=== PATIENT | female | born 1990 | race African-American/Black ===

== ENCOUNTER 2019-04-22 14:14 | Inpatient (IN) | payer OTHER ==
--- NOTE | 2019-04-22 14:16 | PDOC ---
History of Present Illness - General Chief Complaint: Pain Stated Complaint: ABDOMINAL PAIN LOOSE STOOL Time Seen by Provider: 04/22/19 14:16 Past History - Past Medical History Allergies/Adverse Reactions: Allergies Allergy/AdvReac Type Severity Reaction Status Date / Time No Known Allergies Allergy Unverified 04/22/19 14:15 Home Medications: Ambulatory Orders NK [No Known Home Medication] 04/22/19 *DC/Admit/Observation/Transfer - Discharge Dispostion Condition at time of disposition: Stable - Referrals - Patient Instructions - Post Discharge Activity
[2019-04-22] MEDS ORDERED: KETOROLAC TROMETHAMINE 30 MG/1 ML VIAL IVPUSH ONE (14:53)
[2019-04-22] MEDS ORDERED: KETOROLAC TROMETHAMINE 30 MG/1 ML VIAL ONE (15:00)
[2019-04-22 15:25] LABS: HEMOGLOBIN 11.9 GM/dl (10.7-15.3); MCH 30.8 pg (25.7-33.7); MEAN CELL VOLUME 93.1 fl (80-96); MEAN PLT VOLUME 8.5 fl (7.5-11.1); PLATELET COUNT 258 K/MM3 (134-434); RBC 3.86 M/mm3 (3.60-5.2); RDW 11.6 % (11.6-15.6); WHITE BLOOD COUNT 16.3 K/mm3 (4.0-10.8)
[2019-04-22 15:26] LABS: EPITHELIAL CELLS 1+ /hpf; URINE MUCUS 2+
[2019-04-22] MEDS ORDERED: SODIUM CHLORIDE 1,000 ML IV STA (15:29)
[2019-04-22 15:42] LABS: BILIRUBIN,TOTAL 1.6 mg/dl (0.2-1); CALCIUM 8.5 mg/dl (8.5-10); CREATININE 0.5 mg/dl (0.55-1.3); POTASSIUM 3.4 mmol/L (3.5-5.1); TOT PROT 7.3 g/dl (6.4-8.2)
[2019-04-22 16:00] LABS: PLATELET ESTIMATE ADEQUATE
--- NOTE | 2019-04-22 16:37 | PDOC ---
Documentation entered by Lidia Zamora SCRIBE, acting as scribe for Saroj Garcia MD. Saroj Garcia MD: This documentation has been prepared by the tenibNoah thao Natalie, SCRIBE, under my direction and personally reviewed by me in its entirety. I confirm that the documentation accurately reflects all work, treatment, procedures, and medical decision making performed by me. History of Present Illness - General Chief Complaint: Pain Stated Complaint: ABDOMINAL PAIN LOOSE STOOL Time Seen by Provider: 04/22/19 14:16 History Source: Patient Exam Limitations: No Limitations - History of Present Illness Initial Comments: 04/22/19 14:51 The patient is a 28-year-old female, with no past medical history, who presents to the ED diarrhea and abdominal pain that began yesterday. The pain is primarily in the RUQ and she describes it as intermittent, 8/10 in severity, with radiation to her RT lower back and RT shoulder, exacerbated with movement, and accompanied by lightheadedness and nausea, but no vomiting. The patient reports having numerous episodes of nonbloody diarrhea. She denies any recent changes in her diet or recent travel. LMP was 1 week ago and was normal. Patient has a Mirena IUD. The patient denies any fever, chills, vomiting, or constipation. Denies any chest pain or shortness of breath. Denies any weakness, dizziness, or changes in sensation. Denies any vaginal discharge or vaginal bleeding. Allergies: NKA Past History - Past Medical History Allergies/Adverse Reactions: Allergies Allergy/AdvReac Type Severity Reaction Status Date / Time No Known Allergies Allergy Unverified 04/22/19 14:15 Home Medications: Ambulatory Orders NK [No Known Home Medication] 04/22/19 COPD: No Other medical history: DENIES - Suicide/Smoking/Psychosocial Hx Smoking History: Never smoked Information on smoking cessation initiated: No Hx Alcohol Use: Yes (SOCIAL) Drug/Substance Use Hx: No Review of Systems - Review of Systems Able to Perform ROS?: Yes Comments:: 04/22/19 14:52 CONSTITUTIONAL: Absent: fever, chills, diaphoresis, generalized weakness, malaise, loss of appetite HEENT: Absent: rhinorrhea, nasal congestion, throat pain, throat swelling, difficulty swallowing, mouth swelling, ear pain, eye pain, visual Changes CARDIOVASCULAR: (+)Lightheadedness. Absent: chest pain, syncope, palpitations, irregular heart rate, peripheral edema RESPIRATORY: Absent: cough, shortness of breath, dyspnea with exertion, orthopnea, wheezing, stridor, hemoptysis GASTROINTESTINAL: (+)RT-sided abdominal pain, abdominal distension, diarrhea, nausea. Absent: vomiting, constipation, melena, hematochezia GENITOURINARY: Absent: dysuria, frequency, urgency, hesitancy, hematuria, flank pain, genital pain MUSCULOSKELETAL: Absent: myalgia, arthralgia, joint swelling SKIN: Absent: rash, itching, pallor HEMATOLOGIC/IMMUNOLOGIC: Absent: easy bleeding, easy bruising, lymphadenopathy, frequent infections ENDOCRINE: Absent: unexplained weight gain, unexplained weight loss, heat intolerance, cold intolerance NEUROLOGIC: Absent: headache, focal weakness or paresthesias, dizziness, unsteady gait, seizure, mental status changes, bladder or bowel incontinence PSYCHIATRIC: Absent: anxiety, depression, suicidal or homicidal ideation, hallucinations. *Physical Exam - Vital Signs Last Vital Signs Temp Pulse Resp BP Pulse Ox 100.4 F H 112 H 16 122/76 100 04/22/19 14:15 04/22/19 14:15 04/22/19 14:15 04/22/19 14:15 04/22/19 14:15 - Physical Exam Comments: 04/22/19 14:53 GENERAL: Well developed, well nourished. Awake and alert. No acute distress. HEENT: Normocephalic, atraumatic. PERRLA, EOMI. No conjunctival pallor. Sclera are non- icteric. Moist mucous membranes. Oropharynx is clear. NECK: Supple. Full ROM. No JVD. Carotid pulses 2+ and symmetric, without bruits. No thyromegaly. No lymphadenopathy. CARDIOVASCULAR: Regular rate and rhythm. No murmurs, rubs, or gallops. Distal pulses are 2+ and symmetric. PULMONARY: No evidence of respiratory distress. Lungs clear to auscultation bilaterally. No wheezing, rales or rhonchi. ABDOMINAL: (+)There was no pallor or icterus present. Abdomen was mildly distended. Bowel sounds present and normal in character. There was considerable tenderness to palpation to RT mid abdomen and RUQ with guarding and the suggestion of rebound. MUSCULOSKELETAL Normal range of motion at all joints. No bony deformities or tenderness. No CVA tenderness. EXTREMITIES: No cyanosis. No clubbing. No edema. No calf tenderness. SKIN: Warm and dry. Normal capillary refill. No rashes. No jaundice. NEUROLOGICAL: Alert, awake, appropriate. Cranial nerves 2-12 intact. PSYCHIATRIC: Cooperative. Good eye contact. Appropriate mood and affect. ED Treatment Course - LABORATORY CBC & Chemistry Diagram: 04/22/19 14:55 04/22/19 14:55 - ADDITIONAL ORDERS Additional order review: Laboratory Results 04/22/19 14:12 Urine HCG, Qual Negative - RADIOLOGY Radiology Studies Ordered: Category Date Time Status GALLBLADDER US [US] Stat Ultrasound 04/22/19 14:51 Ordered - Medications Given in the ED: ED Medications Discontinued Medications Generic Name Dose Route Start Last Admin Trade Name Freq PRN Reason Stop Dose Admin Ketorolac Tromethamine 30 mg 04/22/19 14:53 04/22/19 15:03 Toradol Injection - IVPUSH 04/22/19 14:54 30 mg ONCE ONE Administration Medical Decision Making - Medical Decision Making 04/22/19 16:33 White blood count 16,000+ with a left shift. LFTs normal. Ultrasound shows normal gallbladder and liver, no free fluid, but appendix was not visualized CT machine Chio undergoing repair and nonfunctional Hospitalist Dr. Moyer contacted by phone. Surgeon Dr. Renee contacted by phone for consultation. Accepted for admission, and [facility], with CAT scan to be performed there , and further evaluation by hospitalist and surgeon. Patient's pain is adequately controlled and she is clinically and hemodynamically stable, although pain is still present. *DC/Admit/Observation/Transfer Diagnosis at time of Disposition: Appendicitis Qualifiers: Appendicitis type: acute appendicitis Acute appendicitis type: with localized peritonitis Appendicitis gangrene presence: unspecified whether gangrene present Appendicitis perforation presence: unspecified whether perforation present Appendicitis abscess presence: unspecified whether abscess present Qualified Code(s): K35.30 - Acute appendicitis with localized peritonitis, without perforation or gangrene - Discharge Dispostion Decision to Admit order: Yes - Referrals - Patient Instructions - Post Discharge Activity
[2019-04-22] MEDS ORDERED: morphine SULFATE 4 MG/ML VIAL IVPUSH PRN ×2 (19:35→22:21)
[2019-04-22] MEDS ORDERED: PIPERACILLIN/TAZOB 4.5 GM 4.5 GM in DEXTROSE 5%-WATER 100 ML IVPB ONE ×2 (19:36→22:21)
[2019-04-22] MEDS ORDERED: ONDANSETRON 4 MG/2 ML VIAL IVPB ONE ×2 (19:37→22:21)
[2019-04-22 19:50] VITALS: BMI 27.6
--- NOTE | 2019-04-22 19:52 | CONSULT ---
Consult Consult Specialty:: General Surgery Reason for Consultation:: presumed appendicitis - History of Present Illness Chief Complaint: RLQ abdominal pain History of Present Illness: 28 yo female no significant PMH, presented to the ED diarrhea and abdominal pain that began yesterday. The pain is primarily in the RUQ and she describes it as intermittent, 8/10 in severity, with radiation to her RT lower back and RT shoulder, exacerbated with movement, and accompanied by lightheadedness and nausea, but no vomiting. The patient reports having numerous episodes of nonbloody diarrhea. She denies any recent changes in her diet or recent travel. LMP was 1 week ago and was normal. Patient has a Mirena IUD. The patient denies any fever, chills, vomiting, or constipation. Denies any chest pain or shortness of breath. Denies any weakness, dizziness, or changes in sensation. Denies any vaginal discharge or vaginal bleeding. We were called when the appendix could not be visualized on Abd US and CT scan was not available at [facility]. - History Source History Provided By: Patient, Medical Record Limitations to Obtaining History: No Limitations - Past Medical History Reproductive: Yes: Other (IUD) - Alcohol/Substance Use Hx Alcohol Use: Yes (SOCIAL) - Smoking History Smoking history: Never smoked - Social History Place of : [facility] Home Medications - Allergies Allergies/Adverse Reactions: Allergies Allergy/AdvReac Type Severity Reaction Status Date / Time No Known Allergies Allergy Unverified 04/22/19 14:15 - Home Medications Home Medications: Ambulatory Orders NK [No Known Home Medication] 04/22/19 Review of Systems - Review of Systems Constitutional: denies: Chills, Fever Eyes: denies: Blind Spots, Recent Change in Vision HENT: denies: Difficult Swallowing, Throat Pain Neck: denies: Decreased ROM, Pain on Movement Cardiovascular: denies: Chest Pain, Palpitations Respiratory: denies: Cough, SOB Gastrointestinal: reports: Abdominal Pain. denies: Bloating, Constipation Genitourinary: denies: Discharge, Dysuria Breasts: reports: No Symptoms Reported. denies: Pain Musculoskeletal: denies: Back Pain, Muscle Pain, Muscle Cramps Integumentary: denies: Bruising, Lesions, Lump Neurological: denies: Syncope, Tremors Endocrine: denies: Unexplained Weight Gain, Unexplained Weight Loss Hematology/Lymphatic: denies: Easily Bruised, Excessive Bleeding Psychiatric: denies: Anxiety, Depression Physical Exam Vital Signs: Vital Signs Temperature 99.7 F H 04/22/19 18:25 Pulse Rate 102 H 04/22/19 18:25 Respiratory Rate 16 04/22/19 18:25 Blood Pressure 119/75 04/22/19 18:25 O2 Sat by Pulse Oximetry (%) 99 04/22/19 18:25 Vital Signs Period Temp Pulse Resp BP Sys/Troy Pulse Ox Last 24 Hr 99.2 F-100.4 F 91-112 16-20 101-123/59-76 99-100 Constitutional: Yes: Well Nourished, No Distress, Calm Eyes: Yes: Conjunctiva Clear, EOM Intact HENT: Yes: Atraumatic, Normocephalic Neck: Yes: Supple, Trachea Midline Cardiovascular: Yes: Regular Rate and Rhythm, S1, S2 Respiratory: Yes: Regular, CTA Bilaterally Gastrointestinal: Yes: Normal Bowel Sounds, Soft, Distention, Tenderness, Tenderness, Rebound, Other (negative psoas sign). No: Abdomen, Obese ...Rectal Exam: Yes: Deferred Renal/: No: CVA Tenderness - Left, CVA Tenderness - Right Musculoskeletal: No: Muscle Pain, Muscle Weakness Extremities: No: Cool, Cyanosis Edema: No Peripheral Pulses WNL: Yes Integumentary: No: Jaundice, Rash, Skin Tear Neurological: Yes: Alert, Oriented Psychiatric: Yes: Alert, Oriented Labs: CBC, BMP 04/22/19 14:55 04/22/19 14:55 Imaging - Results Cat Scan: Pending Problem List - Problems (1) Appendicitis Assessment/Plan: 28yo female a presumed diagnosis of acute appendicitis? Appendix not visualized on Abd US in ED, CT scan not available at [facility] thus she was transferred in order to exclude other female pathology. She does have loaclized peritonitis in the RLQ, with rebound and guarding. Medical admission and complete diagnostic work up NPO and IVF hydration IV antibiotics Adequate analgesia CT scan AP without Discussed with patient risks, benefits and alternatives of laparoscopic possible open appendectomy, including but not limited to bleeding, infection, injury to adjacent structures, leak or injury, intraabdominal abscess, incisional hernia, need for further procedures, ; alternatives include antibiotics, delayed or no surgery - risks of this include failure of nonoperative therapy, perforation, sepsis, recurrence, . Patient desires to proceed with operation - will take to OR for above. Informed consent signed for same. Thank you for the opportunity to participate in the care of this patient. Code(s): K37 - UNSPECIFIED APPENDICITIS Qualifiers: Appendicitis type: acute appendicitis Acute appendicitis type: with localized peritonitis Appendicitis gangrene presence: unspecified whether gangrene present Appendicitis perforation presence: unspecified whether perforation present Appendicitis abscess presence: unspecified whether abscess present Qualified Code(s): K35.30 - Acute appendicitis with localized peritonitis, without perforation or gangrene (2) Abdominal pain in female patient Code(s): R10.9 - UNSPECIFIED ABDOMINAL PAIN (3) RLQ abdominal pain Code(s): R10.31 - RIGHT LOWER QUADRANT PAIN (4) Leukocytosis (leucocytosis) Code(s): D72.829 - ELEVATED WHITE BLOOD CELL COUNT, UNSPECIFIED Qualifiers: Leukocytosis type: bandemia Qualified Code(s): D72.825 - Bandemia (5) Fever Code(s): R50.9 - FEVER, UNSPECIFIED Qualifiers: Fever type: due to other condition Qualified Code(s): R50.81 - Fever presenting with conditions classified elsewhere
--- NOTE | 2019-04-22 20:02 | PN ---
Teaching Attending Note Name of Resident: Domingo Yost ATTENDING PHYSICIAN STATEMENT I saw and evaluated the patient. I reviewed the resident's note and discussed the case with the resident. I agree with the resident's findings and plan as documented. SUBJECTIVE: Patient is a 28 year old woman with no significant PMH who presented to [place] [facility] with diarrhea and abdominal pain that began yesterday. The pain is primarily in the RUQ and she describes it as intermittent, 8/10 in severity, with radiation to her right lower back and right shoulder. Pain is exacerbated with movement, and accompanied by lightheadedness and nausea, but no vomiting. The patient reports having 3 to 4 episodes of nonbloody watery stool. She denies any recent changes in her diet, eating street/unusual food, sick contacts or recent travel. Her LMP was 1 week ago and was normal. Patient has a Mirena IUD. She does not smoke cigarettes, smokes marijuana occasionally, but denies any illicit drug use. 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 She denies any fever, chills, vomiting, constipation, chest pain, shortness of breath, weakness, dizziness, or changes in sensation. Denies any abnormal vaginal discharge or vaginal bleeding. OBJECTIVE: Alert Vital Signs Period Temp Pulse Resp BP Sys/Troy Pulse Ox Last 24 Hr 99.2 F-100.4 F 91-112 16-20 101-123/59-76 99-100 HEENT: No Jaundice, eye redness or discharge, PERRLA, EOMI. Normocephalic, atraumatic. External ears are normal and hearing is grossly intact. No nasal discharge. Neck: Supple, nontender. No palpable adenopathy or thyromegaly. No JVD Chest: Good effort. Clear to auscultation and percussion. Heart: Regular. No S3, rub or murmur Abdomen: Not distended, soft, nontender and no HSM. No rebound or guarding. Normal bowel sounds. Ext: Peripheral pulses intact. No leg edema. Skin: Warm and dry. No petechiae, rash or ecchymosis. Neuro: Alert. Oriented x3. CN 2-12 grossly intact. Sensation grossly intact in all four extremities and DTR are symmetric. Psych: Appropriate mood and affect. Good insight. Current Medications Generic Name Dose Route Start Last Admin Trade Name Freq PRN Reason Stop Dose Admin Morphine Sulfate 4 mg 04/22/19 19:35 04/22/19 19:51 Morphine Sulfate IVPUSH 4 mg Q4H PRN Administration PAIN LEVEL 7 - 10 Home Medications Medication Instructions Recorded NK [No Known Home Medication] 04/22/19 Abnormal Lab Results 04/22/19 04/22/19 04/22/19 14:12 14:55 14:55 WBC 16.3 H Neutrophils % (Manual) 90.0 H Lymphocytes % (Manual) 7.0 L Monocytes % (Manual) 2 L Sodium 132 L Potassium 3.4 L Creatinine 0.5 L Random Glucose 114 H Total Bilirubin 1.6 H ALT 8 L Urine Protein 2+ H Urine Ketones 4+ H Urine Nitrite Positive H Urine Bilirubin 1+ H Urine Urobilinogen 4.0 e.u/dl H ASSESSMENT AND PLAN: 1. Pelvic Inflammatory Disease - Abdominal sonogram was suspicious for appendicitis but CT scan of abdomen/pelvis without contrast didnot visualize the appendix. During laparoscopic procedure, the appendix was noted to be grossly normal but she had a puddle of pus in the right adnexa. Samples being sent for culture. She is being tested for Neisseria Gonorrhea, Chlamydia and Trichomonas. Being started on IV Cefoxitin and Doxycycline for PID. Will consult SENIOR INSPECTOR in view of her IUD. 2. DVT prophylaxis - SCD 3. Advance directives - Full code
[2019-04-22] MEDS ORDERED: CEFOXITIN SODIUM 2 GM IVPB ONE (20:50)
[2019-04-22] MEDS ORDERED: PROPOFOL 20 ML ONE (20:54)
[2019-04-22] MEDS ORDERED: fentaNYL CITRATE 250 MCG/5 ML VIAL ONE (20:54)
[2019-04-22] MEDS ORDERED: LIDOCAINE HCL/PF 2% SDV 5ML VIAL ONE (21:04)
[2019-04-22] MEDS ORDERED: cefOXitin SODIUM 1 GM VIAL (RESTRICTED TO ID) IVPB ONE (21:19)
--- NOTE | 2019-04-22 21:25 | HP ---
CHIEF COMPLAINT: Right-sided abdominal pain PCP: HISTORY OF PRESENT ILLNESS: 28F with no significant PMH, presented to [facility] with Right-sided abdominal pain x1d w/a nausea, diarrhea, chills. Initially, had diffuse epigastric abd pain that became right sided. Denies h/o of abdominal pain, ovarian cysts, STDs. Has IUD, no barrier protection, sexually active. LMP last week w/o abn. ER course was notable for: (1) Morphine (2) zosyn (3) U/S RUQ neg for GB path, TTP of RLQ Recent Travel: PAST MEDICAL HISTORY: none PAST SURGICAL HISTORY: h/o of (17y/o) Social History: Smoking: social MJ Alcohol: social Drugs: social MJ Family History: Allergies No Known Allergies Allergy (Unverified 04/22/19 14:15) HOME MEDICATIONS: Home Medications Medication Instructions Recorded NK [No Known Home Medication] 04/22/19 REVIEW OF SYSTEMS CONSTITUTIONAL: positive for chills, loss of appetite Absent: Fevers, diaphoresis, generalized weakness, malaise, weight change HEENT: Absent: rhinorrhea, nasal congestion, throat pain, throat swelling, difficulty swallowing, visual changes CARDIOVASCULAR: Absent: chest pain, palpitations, irregular heart rate, lightheadedness, peripheral edema RESPIRATORY: Absent: cough, shortness of breath, dyspnea with exertion, orthopnea, wheezing, stridor, hemoptysis GASTROINTESTINAL: positive for abd pain, nausea, diarrhea Absent: abdominal distension, vomiting, constipation, melena, hematochezia GENITOURINARY: Absent: dysuria, frequency, urgency, hesitancy, hematuria, flank pain, genital pain, vaginal discharge MUSCULOSKELETAL: Absent: back pain, neck pain SKIN: Absent: rash, itching, pallor HEMATOLOGIC/IMMUNOLOGIC: Absent: lymphadenopathy, frequent infections ENDOCRINE: Absent: unexplained weight gain, unexplained weight loss, heat intolerance, cold intolerance NEUROLOGIC: Absent: headache,dizziness, unsteady gait, seizure, mental status changes, bladder or bowel incontinence PSYCHIATRIC: Absent: anxiety, depression, suicidal or homicidal ideation, hallucinations. PHYSICAL EXAMINATION Vital Signs - 24 hr 04/22/19 04/22/19 04/22/19 14:15 16:21 18:25 Temperature 100.4 F H 99.2 F 99.7 F H Pulse Rate 112 H Pulse Rate [ 99 H 102 H Left Radial] Respiratory 16 18 16 Rate Blood Pressure 122/76 Blood Pressure 101/59 L 119/75 [Right Arm] O2 Sat by Pulse 100 99 99 Oximetry (%) 04/22/19 04/22/19 19:41 20:20 Temperature 99.5 F Pulse Rate 91 H Pulse Rate [ Left Radial] Respiratory 20 20 Rate Blood Pressure 123/72 Blood Pressure [Right Arm] O2 Sat by Pulse 100 Oximetry (%) GENERAL: Awake, alert, and fully oriented, in mild distress. HEAD: Normal with no signs of trauma. EYES: extraocular movements intact, sclera anicteric, conjunctiva clear. EARS, NOSE, THROAT: Ears normal, nares patent, oropharynx clear without exudates. Moist mucous membranes. NECK: Normal range of motion, supple without lymphadenopathy, JVD, or masses. LUNGS: Breath sounds equal, clear to auscultation bilaterally. No wheezes, and no crackles. No accessory muscle use. HEART: Regular rate and rhythm, normal S1 and S2 without murmur, rub or gallop. ABDOMEN: Soft, not distended, TTP diffusely(L>R), neg rebound, neg Rovsing's, Neg McBurney's, Neg Bangura's, Neg Psoas MUSCULOSKELETAL: normal ROM of UE and LE UPPER EXTREMITIES: warm, well-perfused. Grossly normal strength LOWER EXTREMITIES: warm, well-perfused. Grossly normal strength NEUROLOGICAL: Grossly intact PSYCHIATRIC: Cooperative. Good eye contact. Appropriate mood and affect. SKIN: Warm, dry Laboratory Results - last 24 hr 04/22/19 04/22/19 04/22/19 14:12 14:12 14:55 WBC 16.3 H RBC 3.86 Hgb 11.9 Hct 36.0 MCV 93.1 MCH 30.8 MCHC 33.0 RDW 11.6 Plt Count 258 MPV 8.5 Absolute Neuts (auto) 15.2 Neutrophils % Order Tracer Neutrophils % (Manual) 90.0 H Band Neutrophils % 1.0 Lymphocytes % Order Tracer Lymphocytes % (Manual) 7.0 L Monocytes % Order Tracer Monocytes % (Manual) 2 L Eosinophils % Order Tracer Basophils % Order Tracer Platelet Estimate Adequate Sodium Potassium Chloride Carbon Dioxide Anion Gap BUN Creatinine Est GFR (CKD-EPI)AfAm Est GFR (CKD-EPI)NonAf Random Glucose Calcium Total Bilirubin AST ALT Alkaline Phosphatase Total Protein Albumin Urine Color Yellow Urine Appearance Clear Urine pH 6.5 Urine Protein 2+ H Urine Glucose (UA) Negative Urine Ketones 4+ H Urine Blood Negative Urine Nitrite Positive H Urine Bilirubin 1+ H Urine Urobilinogen 4.0 e.u/dl H Ur Leukocyte Esterase Negative Urine RBC 0-3 Urine WBC 0-3 Ur Transition Epith Cell 1+ Urine Bacteria 1+ Urine Mucus 2+ Urine HCG, Qual Negative 04/22/19 14:55 WBC RBC Hgb Hct MCV MCH MCHC RDW Plt Count MPV Absolute Neuts (auto) Neutrophils % Neutrophils % (Manual) Band Neutrophils % Lymphocytes % Lymphocytes % (Manual) Monocytes % Monocytes % (Manual) Eosinophils % Basophils % Platelet Estimate Sodium 132 L Potassium 3.4 L Chloride 102 Carbon Dioxide 21 Anion Gap 9 BUN 8.0 Creatinine 0.5 L Est GFR (CKD-EPI)AfAm 151.59 Est GFR (CKD-EPI)NonAf 130.79 Random Glucose 114 H Calcium 8.5 Total Bilirubin 1.6 H AST 15 ALT 8 L Alkaline Phosphatase 50 Total Protein 7.3 Albumin 4.0 Urine Color Urine Appearance Urine pH Urine Protein Urine Glucose (UA) Urine Ketones Urine Blood Urine Nitrite Urine Bilirubin Urine Urobilinogen Ur Leukocyte Esterase Urine RBC Urine WBC Ur Transition Epith Cell Urine Bacteria Urine Mucus Urine HCG, Qual U/S RUQ(04/22/19): RLQ blind-ending structure ~1.1cm; no GB path CT A/P(04/22/19): appendix is not definitely visualized, no obvious indirect CT signs of acute appendicitis are noted ASSESSMENT/PLAN: 28F with diffuse abd pain, localizing to the Right alvaro-abd possibly 2/2 to appendicitis vs adnexal process vs PID # Diffuse abd pain - Surgery consulted -- s/p lap appy(Pk, 04/22/19): normal appendix noted. Pus collection near Right adnexa - Incident Response Specialist to be consulted - dc zosyn - cefoxitin 2g, q6h; doxycycline 100mg BID - fu intraoperative cytology/culture of pus collection - serial abdominal exams, QD and PRN NEURO # no acutely active issues - pain regimen: as per anesthesiology RESPIR # at risk of post-op atelectasis - encourage IS usage - monitor vitals q4h CARDIO # no acutely active issues - monitor vitals q4h GI # diffuse abd pain -- addressed above # minimal risk of post-op ileus - ADAT FEN - CLD - LR @125ml/h RENAL # no acutely active issues - daily BMP - trend Tbil - replete electrolytes PRN DISPO - likely home pending resolution of above issues Domingo Yost DO PGY-1 Medicine, PM Float [id number] 04/22/19 Visit type - Emergency Visit Emergency Visit: Yes ED Registration Date: 04/22/19 Care time: The patient presented to the Emergency Department on the above date and was hospitalized for further evaluation of their emergent condition. - New Patient This patient is new to me today: Yes Date on this admission: 04/23/19 - Critical Care Critical Care patient: No
[2019-04-22] MEDS ORDERED: GLYCOPYRROLATE 0.2 MG/1 ML VIAL ONE (21:38)
[2019-04-22] MEDS ORDERED: NEOSTIGMINE METHYLSULFATE 0.5 MG/1 ML - 10 ML MDV ONE (21:38)
[2019-04-22] MEDS ORDERED: DEXAMETHASONE SOD PHOSPHATE 4 MG/1 ML VIAL ONE (21:39)
[2019-04-22] MEDS ORDERED: ONDANSETRON 4 MG/2 ML VIAL ONE (21:39)
[2019-04-22] MEDS: LACTATED RINGERS SOLUTION 1,000 ML IV SCH (22:00)
--- NOTE | 2019-04-22 22:03 | OP ---
Operative Note - Note: Operative Date: 04/22/19 Pre-Operative Diagnosis: Acute appendicitis Operation: Diagnostic Laparoscopy, laparoscopic appendectomy, pelvic washout Findings: appendix appeared grossly normal, Puddle of pus in the right adnexa, sent for culture and cytology Post-Operative Diagnosis: Other (appendicitis versus pelvic inflammatory disease ) Surgeon: Zenon Renee Anesthesiologist/CONDUCTOR/BRAKEMAN: Heather Cho Anesthesia: General, Local Specimens Removed: appendix Estimated Blood Loss (mls): 2 Drains, Volume Out (mls): 300 (terrell) Fluid Volume Replaced (mls): 900 (cyrstalloid ) Operative Report Dictated: Yes
[2019-04-22] MEDS ORDERED: ACETAMINOPHEN 1000 MG/100 ML VIAL (NON FORMULARY) IVPB ONE (22:06)
[2019-04-22] MEDS ORDERED: oxyCODONE HCL 5 MG TABLET PO PRN ×2 (22:22)
[2019-04-22] MEDS ORDERED: ONDANSETRON 4 MG/2 ML VIAL IVPUSH PRN (22:22)
[2019-04-22] MEDS ORDERED: D5-1/2NS+20 MEQ KCL - 20 MEQ/1,000 ML INFUS.BAG IV SCH (22:30)
[2019-04-22] MEDS ORDERED: ACETAMINOPHEN INJECTION 100 ML IVPB ONE (22:36)
[2019-04-22] MEDS ORDERED: CEFOXITIN SODIUM/DEXTROSE,ISO 2 GM/50 ML BAG IVPB SCH (22:45)
[2019-04-23] MEDS ORDERED: PT OWN MED DRAWER 7, Y5N ONE ×4 (01:59→21:11)
[2019-04-23] MEDS ORDERED: CEFOXITIN SODIUM/DEXTROSE,ISO 2 GM/50 ML BAG IVPB SCH (04:00)
[2019-04-23] MEDS: LACTATED RINGERS SOLUTION 1,000 ML IV SCH (06:47)
[2019-04-23 08:24] LABS: HEMATOCRIT 32.3 % (32.4-45.2); HEMOGLOBIN 10.5 GM/dL (10.7-15.3); MCHC 32.6 g/dl (32.0-36.0); MEAN CELL VOLUME 92.2 fl (80-96); MEAN PLT VOLUME 8.4 fl (7.5-11.1); RDW 12.3 % (11.6-15.6); WHITE BLOOD COUNT 17.1 K/mm3 (4.0-10.0)
[2019-04-23 08:52] LABS: ALBUMIN 3.2 g/dl (3.4-5.0); BILIRUBIN,TOTAL 1.5 mg/dL (0.2-1); BLOOD UREA NITROGEN 5.6 mg/dL (7-18); CALCIUM 8.2 mg/dL (8.5-10.1); CREATININE 0.7 mg/dL (0.55-1.3); MAGNESIUM 2.2 mg/dL (1.8-2.4); PHOSPHOROUS 2.7 mg/dL (2.5-4.9); POTASSIUM 3.9 mmol/L (3.5-5.1); TOT PROT 6.8 g/dl (6.4-8.2)
--- NOTE | 2019-04-23 08:57 | PN ---
Progress Note (short form) - Note Progress Note: POST OP DAY#1.S/P LAPROSCOPIC APPENDECTOMY UNDER GA UNEVENTFUL.PATIENT STABLE.NO ANY ANESTHESIA RELATED PROBLEM.PATIENT DC FROM THE ANESTHESIA CARE.
--- NOTE | 2019-04-23 09:03 | CON.ID ---
Consult Consult Specialty:: infectious disease Referred by:: hospitalist Reason for Consultation:: PID - History of Present Illness Chief Complaint: Right sided abdominal pain History of Present Illness: 28 yo female developed abdominal pain diffuse on Saturday- originally thought secondry to new exercise routine but pain worsened and then localized to the right mainly RUQ she had associated nausea, no vomiting no fevers or chills noted loosed stools on Saturday seen in ED at [facility] with these complaints, temp 100.4 elevated wbc noted underwent exlap last night, normal apperaing appendix with pus at adnexa? today less pain quite comfortable started on cefoxitin/doxycycline for PID- gyne consult requested last sexually active one week ago- no condoms IUD since 2014 no history of STD HIV negative LMP one week ago, noted yellow/white vaginal discharge after - normal for her - History Source History Provided By: Patient Limitations to Obtaining History: No Limitations - Past Surgical History Additional Surgical History: vaginal delivery - Alcohol/Substance Use Hx Alcohol Use: Yes (SOCIAL) History of Substance Use: reports: None - Smoking History Smoking history: Never smoked - Social History Usual Living Arrangement: With Child ADL: Independent 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 Place of : [facility] History of Recent Travel: No Home Medications - Allergies Allergies/Adverse Reactions: Allergies Allergy/AdvReac Type Severity Reaction Status Date / Time No Known Allergies Allergy Unverified 04/22/19 14:15 - Home Medications Home Medications: Ambulatory Orders NK [No Known Home Medication] 04/22/19 Family Disease History - Family Disease History Family Disease History: Diabetes: Mother (htn), CA: Grandparent (ovarian cancer) , Other: Mother, Sister (thyroid disease) Review of Systems - Review of Systems Constitutional: reports: No Symptoms Eyes: reports: No Symptoms HENT: reports: No Symptoms Neck: reports: No Symptoms Cardiovascular: reports: No Symptoms Respiratory: reports: No Symptoms Gastrointestinal: reports: Abdominal Pain, Nausea Genitourinary: reports: No Symptoms Breasts: reports: No Symptoms Reported Musculoskeletal: reports: No Symptoms Integumentary: reports: No Symptoms Neurological: reports: No Symptoms Physical Exam Vital Signs: Vital Signs Temperature 98.7 F 04/23/19 06:00 Pulse Rate 57 L 04/23/19 06:00 Respiratory Rate 20 04/23/19 06:00 Blood Pressure 93/53 L 04/23/19 06:00 O2 Sat by Pulse Oximetry (%) 97 04/22/19 23:35 Constitutional: Yes: Well Nourished, No Distress, Calm Eyes: Yes: Conjunctiva Clear, EOM Intact HENT: Yes: Atraumatic, Normocephalic Neck: Yes: Supple, Trachea Midline Cardiovascular: Yes: Regular Rate and Rhythm Respiratory: Yes: Regular, CTA Bilaterally Gastrointestinal: Yes: Normal Bowel Sounds, Soft. 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
[2019-04-23 09:06] LABS: PLATELET COUNT 235 K/MM3 (134-434)
[2019-04-23] MEDS: CEFOXITIN SODIUM/DEXTROSE,ISO 2 GM/50 ML BAG IVPB SCH ×3 (09:22→21:16)
[2019-04-23] MEDS: ENOXAPARIN NA (PORCINE) 40 MG/0.4 ML DISP.SYRIN SQ SCH (09:23)
[2019-04-23] MEDS: DOCUSATE SODIUM 100 MG CAPSULE (FP) PO SCH ×2 (09:23→21:16)
[2019-04-23] MEDS: DOXYCYCLINE HYCLATE 100 MG CAPSULE PO SCH ×2 (09:23→17:10)
[2019-04-23] MEDS: SODIUM CHLORIDE 1,000 ML IV SCH ×2 (09:23→17:33)
[2019-04-23] MEDS ORDERED: CEFTRIAXONE 2 MG in DEXTROSE 5%-WATER - 50 ML IVPB SCH (10:00)
--- NOTE | 2019-04-23 12:07 | OP ---
DATE OF OPERATION: 04/22/2019 PREOPERATIVE DIAGNOSIS: Acute appendicitis. POSTOPERATIVE DIAGNOSIS: Appendicitis versus pelvic inflammatory disease. PROCEDURE: Diagnostic laparoscopy, laparoscopic appendectomy, pelvic washout. ATTENDING SURGEON: Zenon Renee MD ANESTHESIOLOGIST: Heather Cho MD ANESTHESIA TYPE: General with local, local consisting of 0.5% Marcaine a total of 10 mL injected at the port sites. ESTIMATED BLOOD LOSS: 2 mL. INTRAVENOUS FLUID ADMINISTERED: Crystalloid, 900 mL. URINE OUTPUT: Urine in the Liao, 300 mL. SPECIMEN: Appendix. Also cultures and fluid for cytology and GC/chlamydia were also sent. BRIEF FINDINGS: Patient had an appendix that appeared grossly normal, might have been slightly injected, and there was a puddle of pus in the right adnexa. It was sent for culture and cytology. . INDICATIONS: Patient is a 28-year-old female with right lower quadrant pain of 1 day, shoulder pain, fevers, and leukocytosis. CT scan was equivocal for appendicitis. It did not show any adnexal pathology. Given the picture of the clinical presentation, decision was made to go for diagnostic laparoscopy and appendectomy. She signed informed consent and was taken to the procedure. DESCRIPTION OF PROCEDURE: The patient was brought to the operating room. She was placed in supine position on the operating table. Lower extremities had SCDs placed to compression. Patient received intravenous antibiotics prior to start of surgery, 2 g of Mefoxin. She was induced with general anesthesia, endotracheally intubated without incident by Anesthesia. With patient, after a formal time-out identifying the operative site and procedure, we began first with a supraumbilical approach for pelvic diagnostic laparoscopy. Tony entry was made after a 15-blade scalpel was used to incise the skin. It was deepened and widened through the subcutaneous tissue towards the deep fascia. The fascia was grasped and then entered bluntly. It appeared relatively atraumatic. A pneumoperitoneum was then established to 15 mmHg, at which point, we began first with introduction of the 5-0 scope into the abdomen. There appeared to be minimal fat stranding changes or inflammatory changes in the area of the cecum. The appendix was immediately identified by following the veil of Treves back to the base at the cecum at the termination of the taenia coli. After grasping the appendix and beginning to dissect the mesoappendix with the LigaSure device, the base of the appendix could be clearly identified. The base was then stapled, and the appendix was then taken e bloc. It was not retrieved from the abdomen and left to the side. We then continued our exploration of the pelvis. There did appear to be a small puddle of purulent material in the right adnexa. The left adnexa was explored. The uterus appeared somewhat injected and swollen. The fallopian tube and ovary appeared completely normal grossly in the left and right adnexa. The puddle was first suctioned and then lavaged into a specimen container at the suction trap. This allowed for both culture and cytology for the fluid which could be identified. Photographic documentation of the changes were taken prior to the start of the dissection and the aspiration of the fluid. The pelvis was then washed out with sterile irrigation fluid. A total of 1 L was instilled and then suctioned from the abdomen. The patient was returned to level position. The pneumoperitoneum was relieved after the trocars were removed under direct visualization. The patient then had the abdominal entry site at the supraumbilical position ablated using a 0 Vicryl tied in a figure-of-8. After completing this, the patient had the skin closed with 4-0 Vicryl, and the skin was closed with Dermabond. Patient was awoken from general anesthesia having tolerated the procedure well. All counts were correct. MD MENDY [id number]
[2019-04-23] MEDS: KETOROLAC TROMETHAMINE 15 MG/ML VIAL IVPUSH PRN ×2 (16:19→22:30)
--- NOTE | 2019-04-23 18:14 | PN ---
Progress Note (short form) - Note Progress Note: Patient is feeling better, no fever or chills at this time Vital Signs Temperature 98.0 F 04/23/19 10:00 Pulse Rate 63 04/23/19 10:00 Respiratory Rate 20 04/23/19 10:00 Blood Pressure 114/66 04/23/19 10:00 O2 Sat by Pulse Oximetry (%) 97 04/22/19 23:35 GENERAL: The patient is awake, alert, and fully oriented, in no acute distress. HEAD: Normal with no signs of trauma. EYES: PERRL, extraocular movements intact, sclera anicteric, conjunctiva clear. ENT: Ears normal, oropharynx clear without exudates, moist mucous membranes. NECK: Trachea midline, full range of motion, supple. LUNGS: Breath sounds equal, clear to auscultation bilaterally, no wheezes, no crackles, no accessory muscle use. HEART: Regular rate and rhythm, S1, S2 without murmur, rub or gallop. ABDOMEN: Soft, NT,ND, POD#1, normoactive bowel sounds, no guarding, no rebound , no hepatosplenomegaly, no masses. EXTREMITIES: 2+ pulses, warm, well-perfused, no edema. NEUROLOGICAL: Cranial nerves II through XII grossly intact. Normal speech, gait not observed. PSYCH: Normal mood, normal affect. SKIN: Warm, dry, normal turgor, no rashes or lesions noted CBCD WBC 17.1 K/mm3 (4.0-10.0) H 04/23/19 07:12 RBC 3.50 M/mm3 (3.60-5.2) L 04/23/19 07:12 Hgb 10.5 GM/dL (10.7-15.3) L 04/23/19 07:12 Hct 32.3 % (32.4-45.2) L 04/23/19 07:12 MCV 92.2 fl (80-96) 04/23/19 07:12 MCHC 32.6 g/dl (32.0-36.0) 04/23/19 07:12 RDW 12.3 % (11.6-15.6) 04/23/19 07:12 Plt Count 235 K/MM3 (134-434) 04/23/19 07:12 MPV 8.4 fl (7.5-11.1) 04/23/19 07:12 CMP Sodium 139 mmol/L (136-145) 04/23/19 07:12 Potassium 3.9 mmol/L (3.5-5.1) 04/23/19 07:12 Chloride 105 mmol/L (98-107) 04/23/19 07:12 Carbon Dioxide 27 mmol/L (21-32) 04/23/19 07:12 Anion Gap 7 MMOL/L (8-16) L 04/23/19 07:12 BUN 5.6 mg/dL (7-18) L 04/23/19 07:12 Creatinine 0.7 mg/dL (0.55-1.3) 04/23/19 07:12 Random Glucose 110 mg/dL (74-106) H 04/23/19 07:12 Calcium 8.2 mg/dL (8.5-10.1) L 04/23/19 07:12 Total Bilirubin 1.5 mg/dL (0.2-1) H 04/23/19 07:12 AST 8 U/L (15-37) L 04/23/19 07:12 ALT 9 U/L (13-61) L 04/23/19 07:12 Alkaline Phosphatase 68 U/L (45-117) 04/23/19 07:12 Total Protein 6.8 g/dl (6.4-8.2) 04/23/19 07:12 Albumin 3.2 g/dl (3.4-5.0) L 04/23/19 07:12 Current Medications Generic Name Dose Route Start Last Admin Trade Name Edvin PRN Reason Stop Dose Admin Docusate Sodium 100 mg 04/23/19 10:00 04/23/19 09:23 Colace - PO 100 mg BID CRISTIAN Administration Doxycycline Hyclate 100 mg 04/23/19 10:00 04/23/19 17:10 Vibramycin - PO 100 mg BID@1000,1800 CRISTIAN Administration Enoxaparin Sodium 40 mg 04/23/19 10:00 04/23/19 09:23 Lovenox - SQ 40 mg DAILY CRISTIAN Administration Cefoxitin Sodium 2 gm in 50 mls @ 100 mls/hr 04/23/19 10:00 04/23/19 15:17 Mefoxin Premix (Restricted To Id) IVPB 100 mls/hr Q6H-IV CRISTIAN Administration Protocol Sodium Chloride 1,000 mls @ 150 mls/hr 04/23/19 08:45 04/23/19 17:33 Normal Saline - IV 150 mls/hr ASDIR CRISTIAN Administration Ketorolac Tromethamine 15 mg 04/23/19 16:05 04/23/19 16:19 Toradol Injection - IVPUSH 04/24/19 16:04 15 mg Q6H PRN Administration PAIN LEVEL 4 - 6 Ondansetron HCl 4 mg 04/22/19 22:22 Zofran Injection IVPUSH Q6H PRN NAUSEA Home Medications Medication Instructions Recorded NK [No Known Home Medication] 04/22/19 Assessment and plan: Patient is a 28 yo female with hx of IUD(2014) presented to ED with diffuse abdominal pain started on Saturday, and was localized to the RLQ. # POD #1 s/p laposcopy for suspected appendicitis , as per surgeon , no appendicitis was noted but had rlq pain with an abscess. on Rocephin as per ID switched to cefoxitin/doxycycline for PID. gyne consult requested, wants to be tested for HIV. # PID with IUD on cefoxitin/doxycycline continue. # HIV negative s/p testing by ID #LMP one week ago, noted yellow/white vaginal discharge after - normal for her DVT Px: SCDs Visit type - Emergency Visit Emergency Visit: Yes ED Registration Date: 04/22/19 Care time: The patient presented to the Emergency Department on the above date and was hospitalized for further evaluation of their emergent condition. - New Patient This patient is new to me today: Yes Date on this admission: 04/23/19 - Critical Care Critical Care patient: No - Discharge Referral Referred to [facility] No
[2019-04-24] MEDS ORDERED: PT OWN MED DRAWER 7, Y5N ONE ×3 (02:46→20:45)
[2019-04-24] MEDS: CEFOXITIN SODIUM/DEXTROSE,ISO 2 GM/50 ML BAG IVPB SCH ×4 (02:57→20:40)
[2019-04-24] MEDS: KETOROLAC TROMETHAMINE 15 MG/ML VIAL IVPUSH PRN (06:40)
[2019-04-24 09:06] LABS: BASO % 0.2 % (0-2.0); EOS % 0.2 % (0-4.5); HEMATOCRIT 29.3 % (32.4-45.2); HEMOGLOBIN 9.6 GM/dL (10.7-15.3); LYMPH % 29.9 % (8-40); MCH 30.5 pg (25.7-33.7); MCHC 32.9 g/dl (32.0-36.0); MEAN CELL VOLUME 92.8 fl (80-96); MEAN PLT VOLUME 8.8 fl (7.5-11.1); MONO % 3.9 % (3.8-10.2); NEUT % 65.8 % (42.8-82.8); PLATELET COUNT 218 K/MM3 (134-434); RBC 3.16 M/mm3 (3.60-5.2); RDW 12.9 % (11.6-15.6); WHITE BLOOD COUNT 8.7 K/mm3 (4.0-10.0)
[2019-04-24] MEDS: ENOXAPARIN NA (PORCINE) 40 MG/0.4 ML DISP.SYRIN SQ SCH (09:48)
[2019-04-24] MEDS: DOCUSATE SODIUM 100 MG CAPSULE (FP) PO SCH ×2 (09:48→21:38)
[2019-04-24] MEDS: DOXYCYCLINE HYCLATE 100 MG CAPSULE PO SCH ×2 (09:48→17:10)
[2019-04-24] MEDS: SODIUM CHLORIDE 1,000 ML IV SCH ×2 (09:49→17:48)
[2019-04-24 10:07] LABS: ALBUMIN 2.7 g/dl (3.4-5.0); BILIRUBIN,TOTAL 0.4 mg/dL (0.2-1); BLOOD UREA NITROGEN 7.8 mg/dL (7-18); CREATININE 0.7 mg/dL (0.55-1.3); MAGNESIUM 1.9 mg/dL (1.8-2.4); PHOSPHOROUS 1.8 mg/dL (2.5-4.9); POTASSIUM 3.8 mmol/L (3.5-5.1); TOT PROT 5.9 g/dl (6.4-8.2)
--- NOTE | 2019-04-24 11:47 | CONSULT ---
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 No fevers/chills. No N/V. Initially thought it was gas, as this felt similiar to a gas episode she felt while . Also denies abnl vaginal discharge. Just finished her cycle 2 days ago. Mirena IUD for contraception, placed 2014. No issues with the IUD, happy with bleeding profile Patient is now s/p LSC appendectomy, POD#1. She reports the RLQ pain is mostly resolved, but notes persistent RUQ pain, radiating to her back. Primary OBGYN is a physician at [facility] in [facility]. 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 Mirena IUD. No history of STIs. - History Source History Provided By: Patient Limitations to Obtaining History: No Limitations - Past Medical History AGRONOMY INTERNSHIP: No: Alzheimer's, CVA, Dementia, Migraine, Multiple Sclerosis, Peripheral Neuropathy, Parkinson's, Seizure, Syncope, TIA, Vertigo, Other Cardio/Vascular: No: AFIB, Aneurysm, Aortic Insufficiency, Aortic Stenosis, CAD , CHF, Deep Vein Thrombosis, HTN, Hyperlipdemia, AK, Mitral Insufficiency, Mitral Stenosis, Murmur, Pulmonary Hypertension, Other Pulmonary: No: Asthma, Bronchitis, Cancer, COPD, O2 Dependent, Pneumonia, Previously Intubated, Pulmonary Embolus, Pulmonary Fibrosis, Sleep Apnea, Other Gastrointestinal: No: Ascites, Cancer, Constipation, Crohn's Disease, Diverticulitis, Diverticulosis, Esophageal Varices, Gastritis, GERD, GI Bleed, Hemorrhoids, Hiatal Hernia, Inflamatory Bowel Disease, Irritable Bowel Disease, Pancreatitis, Peptic Ulcer Disease, Ulcerative Colitis, Other Hepatobiliary: No: Cirrhosis, Cholelithiasis, Cholecystitis, Choledocholithiasis , Hepatitis A, Hepatitis B, Hepatitis C, Other Renal/: No: Renal Failure, Renal Inusuff, BPH, Cancer, Hematuria, Hemodialysis , Neurogenic Bladder, Renal Calculi, UTI, Other Reproductive: No: Ectopic , Endometriosis, Fibroids, PID, Polycystic Ovary Syndrome, Postmenopausal, Other ...: No ...: 2 ...Para: 1 - Past Surgical History Past Surgical History: Yes: Appendectomy Additional Surgical History: vaginal delivery - Alcohol/Substance Use Hx Alcohol Use: Yes (SOCIAL) History of Substance Use: reports: None - Smoking History Smoking history: Never smoked - Social History Usual Living Arrangement: With Child ADL: Independent 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 Travel: No Home Medications - Allergies Allergies/Adverse Reactions: Allergies Allergy/AdvReac Type Severity Reaction Status Date / Time No Known Allergies Allergy Unverified 04/22/19 14:15 - Home Medications Home Medications: Ambulatory Orders NK [No Known Home Medication] 04/22/19 Family Disease History - Family Disease History Family Disease History: Diabetes: Mother (htn), CA: Grandparent (ovarian cancer) , Other: Mother, Sister (thyroid disease) Review of Systems - Review of Systems Constitutional: denies: No Symptoms, Chills, Diaphoresis, Fever, Lethargy, Loss of Appetite, Malaise, Night Sweats, Unintentional Wgt. Loss, Weakness, Other Gastrointestinal: reports: Abdominal Pain Genitourinary: denies: No Symptoms, Burning, Discharge, Dysuria, Flank Pain, Frequency, Hematuria, Incontinence, Lesions, Menses, Pain, Testicular Mass, Testicular Pain, Testicular Swelling, Urgency, Vaginal Bleeding, Other Physical Exam Vital Signs: Vital Signs Temperature 98.7 F 04/24/19 07:31 Pulse Rate 54 L 04/24/19 07:31 Respiratory Rate 15 04/24/19 07:31 Blood Pressure 106/61 04/24/19 07:31 O2 Sat by Pulse Oximetry (%) 98 04/24/19 09:00 Constitutional: Yes: Well Nourished, No Distress, Calm Gastrointestinal: Yes: Soft, Tenderness (RUQ and at incision points in her RLQ/ LLQ) Renal/: Yes: Menses Present, Vaginal Bleeding (NEFG, pink vagina, no cervical motion tenderness, no uterine tenderness, no adnexal fullness/massess or tenderness) Labs: CBC, BMP 04/24/19 08:00 04/24/19 08:00 Imaging - Results Cat Scan: Report Reviewed Assessment/Plan 28yo here with RLQ/RUQ pain s/p LSC appendectomy, POD#1 - concern for possible PID Vitals, labs and imaging findings were reviewed. Positive nitrites on urinalysis should be followed up with urine culture and treated accordingly. Otherwise no leukocytosis, fluid from surgery staining/cultures pending. History discussed with patient, including review for potential risk factors for PID. Unremarkable pelvic exam today. Given the lack of the fevers, vaginal discharge , cervical motion tenderness, low likelihood of PID. Few risk factors for disease as well given lack of STI history, monogamous relationship . Being treated with Cefox/Doxy as per primary team. No operative report officially available, but photos from surgery were in the chart, which demonstrated pus like fluid in the patient's pelvis, anterior cul de sac. No pictures of the fallopian tubes/uterus taken. CT did demonstrate a 3cm L adnexal cyst, however, likely simple in nature and not in the appropriate area given the patients pain. Advised patient of findings of normal L adnexal cyst and advised follow up in 8- 12 week for repeat imaging to determine if this cyst is stable or has resolved- can do this with her private OBGYN in [facility] Saira Rajan MD
--- NOTE | 2019-04-24 13:46 | PN ---
Progress Note, Physician Chief Complaint: abdominal pain History of Present Illness: 28 yo female no significant PMH, presented to the ED diarrhea and abdominal pain that began yesterday. The pain is primarily in the RUQ and she describes it as intermittent, 8/10 in severity, with radiation to her RT lower back and RT shoulder, exacerbated with movement, and accompanied by lightheadedness and nausea, but no vomiting. She has been stable since surgery - Current Medication List Current Medications: Active Medications Docusate Sodium (Colace -) 100 mg PO BID [facility] Last Admin: 04/24/19 09:48 Dose: 100 mg Doxycycline Hyclate (Vibramycin -) 100 mg PO BID@1000,1800 [facility] Last Admin: 04/24/19 09:48 Dose: 100 mg Enoxaparin Sodium (Lovenox -) 40 mg SQ DAILY [facility] Last Admin: 04/24/19 09:48 Dose: 40 mg Cefoxitin Sodium (Mefoxin Premix (Restricted To Id)) 2 gm in 50 mls @ 100 mls/ hr IVPB Q6H-IV CRISTIAN; Protocol Last Admin: 04/24/19 09:48 Dose: 100 mls/hr Sodium Chloride (Normal Saline -) 1,000 mls @ 150 mls/hr IV ASDIR [facility] Last Admin: 04/24/19 09:49 Dose: 150 mls/hr Ketorolac Tromethamine (Toradol Injection -) 15 mg IVPUSH Q6H PRN PRN Reason: PAIN LEVEL 4 - 6 Stop: 04/24/19 16:04 Last Admin: 04/24/19 06:40 Dose: 15 mg Ondansetron HCl (Zofran Injection) 4 mg IVPUSH Q6H PRN PRN Reason: NAUSEA - Objective Vital Signs: Vital Signs Temperature 98.7 F 04/24/19 07:31 Pulse Rate 54 L 04/24/19 07:31 Respiratory Rate 15 04/24/19 07:31 Blood Pressure 106/61 04/24/19 07:31 O2 Sat by Pulse Oximetry (%) 98 04/24/19 09:00 Constitutional: Yes: Well Nourished, No Distress, Calm, Other Eyes: Yes: Conjunctiva Clear HENT: Yes: Atraumatic, Normocephalic Neck: Yes: Supple, Trachea Midline Cardiovascular: Yes: Regular Rate and Rhythm, S1, S2 Respiratory: Yes: Regular, CTA Bilaterally Gastrointestinal: Yes: Normal Bowel Sounds, Soft ...Rectal Exam: Yes: Deferred Genitourinary: No: CVA Tenderness - Left, CVA Tenderness - Right Extremities: No: Cool, Cyanosis Edema: No Peripheral Pulses WNL: Yes Wound/Incision: Yes: Clean/Dry, Well Approximated, Open to air, Other (dermabond ) Neurological: Yes: Alert, Oriented Psychiatric: Yes: Alert, Oriented Labs: CBC, BMP 04/24/19 08:00 04/24/19 08:00 Problem List - Problems (1) Appendicitis Assessment/Plan: 28yo female a presumed diagnosis of acute appendicitis? Appendix not visualized on Abd US in ED, CT scan not available at [place] thus she was transferred in order to exclude other female pathology. She does have loaclized peritonitis in the RLQ, with rebound and guarding. POD#2 s/p Lap appendectomy, leukocytosis completely resolved 8.7K Medical admission and complete diagnostic work up Diet as tolerated IV antibiotics per ID Adequate analgesia f/u cultures and cytology Discharge planning at discretion of primary team Code(s): K37 - UNSPECIFIED APPENDICITIS Qualifiers: Appendicitis type: acute appendicitis Acute appendicitis type: with localized peritonitis Appendicitis gangrene presence: unspecified whether gangrene present Appendicitis perforation presence: unspecified whether perforation present Appendicitis abscess presence: unspecified whether abscess present Qualified Code(s): K35.30 - Acute appendicitis with localized peritonitis, without perforation or gangrene (2) Abdominal pain in female patient Code(s): R10.9 - UNSPECIFIED ABDOMINAL PAIN (3) RLQ abdominal pain Code(s): R10.31 - RIGHT LOWER QUADRANT PAIN (4) Leukocytosis (leucocytosis) Code(s): D72.829 - ELEVATED WHITE BLOOD CELL COUNT, UNSPECIFIED Qualifiers: Leukocytosis type: bandemia Qualified Code(s): D72.825 - Bandemia (5) Fever Code(s): R50.9 - FEVER, UNSPECIFIED Qualifiers: Fever type: due to other condition Qualified Code(s): R50.81 - Fever presenting with conditions classified elsewhere
--- NOTE | 2019-04-24 14:39 | PN ---
Physical Exam: SUBJECTIVE: Patient seen and examined at the bedside. No acute events over night. Vitals stable over night. OBJECTIVE: Vital Signs Period Temp Pulse Resp BP Sys/Troy Pulse Ox Last 24 Hr 98.7 F-98.7 F 54-84 15-20 106-117/55-61 98 GENERAL: The patient is lying comfortably in her bed. The patient was awake, alert, and fully oriented, in no acute distress. HEAD: Normal with no signs of trauma. NECK: supple. LUNGS: Breath sounds equal, clear to auscultation bilaterally, no wheezes, no crackles, no accessory muscle use. HEART: Regular rate and rhythm, S1, S2 without murmur, rub or gallop. ABDOMEN: Soft, slightly tender in rt middle abdomen and rt lower back, hypoactive bowel sounds, slightly tender to deep palpation, no rebound tenderness, and no masses appreciated on exam. EXTREMITIES: 2+ pulses, warm, well-perfused, no edema. PSYCH: Normal mood, normal affect. SKIN: Warm, dry, no rashes or lesions noted. Laboratory Results - last 24 hr 04/24/19 04/24/19 08:00 08:00 WBC 8.7 RBC 3.16 L Hgb 9.6 L Hct 29.3 L MCV 92.8 MCH 30.5 MCHC 32.9 RDW 12.9 Plt Count 218 MPV 8.8 Absolute Neuts (auto) 5.7 Neutrophils % 65.8 Lymphocytes % 29.9 Monocytes % 3.9 Eosinophils % 0.2 Basophils % 0.2 Nucleated RBC % 0 Sodium 141 Potassium 3.8 Chloride 109 H Carbon Dioxide 28 Anion Gap 4 L BUN 7.8 Creatinine 0.7 Est GFR (CKD-EPI)AfAm 135.70 Est GFR (CKD-EPI)NonAf 117.08 Random Glucose 84 Calcium 8.0 L Phosphorus 1.8 L Magnesium 1.9 Total Bilirubin 0.4 AST 9 L ALT 11 L Alkaline Phosphatase 52 Total Protein 5.9 L Albumin 2.7 L Active Medications Generic Name Dose Route Start Last Admin Trade Name Freq PRN Reason Stop Dose Admin Docusate Sodium 100 mg 04/23/19 10:00 04/24/19 09:48 Colace - PO 100 mg BID CRISTIAN Administration Doxycycline Hyclate 100 mg 04/23/19 10:00 04/24/19 09:48 Vibramycin - PO 100 mg BID@1000,1800 CRISTIAN Administration Enoxaparin Sodium 40 mg 04/23/19 10:00 04/24/19 09:48 Lovenox - SQ 40 mg DAILY CRISTIAN Administration Cefoxitin Sodium 2 gm in 50 mls @ 100 mls/hr 04/23/19 10:00 04/24/19 09:48 Mefoxin Premix (Restricted To Id) IVPB 100 mls/hr Q6H-IV CRISTIAN Administration Protocol Sodium Chloride 1,000 mls @ 150 mls/hr 04/23/19 08:45 04/24/19 09:49 Normal Saline - IV 150 mls/hr ASDIR CRISTIAN Administration Ketorolac Tromethamine 15 mg 04/23/19 16:05 04/24/19 06:40 Toradol Injection - IVPUSH 04/24/19 16:04 15 mg Q6H PRN Administration PAIN LEVEL 4 - 6 Ondansetron HCl 4 mg 04/22/19 22:22 Zofran Injection IVPUSH Q6H PRN NAUSEA ASSESSMENT/PLAN: A 28 y/o F w a PMH of IUD (mirena 2014) presented to the ED with diffuse abdominal pain with referred pain to the Rt shoulder and RLQ that began this past saturday. She underwent a Lap Appendectomy and upon surgery, they found an abscess in the Lt adnexa and a culture of that fluid was sent for Gonorrhea, chlamydia, and trichomonas. CT- appendix was not visualized. No obvious rt adnexal abnormality. No bowel obstruction. CT showed 3cm L adnexal cyst, Gall bladder US- no gall stones appreciated. Tubular blind ending structure in RLQ. No dilated CBD. # ? PID w/ IUD - pt on cefoxitin and doxycycline to Rx gonorrhea or chlamydia induced PID. - Dr. Rajan (OBGYN)- Unremarkable pelvic exam today. Given the lack of the fevers, vaginal discharge, cervical motion tenderness, low likelihood of PID. Being treated with Cefox/Doxy as per primary team. CT did demonstrate a 3cm L adnexal cyst, likely simple in nature and not in the appropriate area given the patients pain. Advised patient of findings of normal L adnexal cyst and advised follow up in 8- 12 week w/ her OBGYN in [facility] for repeat imaging to determine if this cyst is stable or has resolved. -HIV negative -LMP was 1 wk ago noted to have yellow/white discharge which is normal for her as per patient. - continue ketorolac injections for pain 15mg q6h PRN and zofran for nausea 4mg q6h PRN. #Post-op atelectasis incentive spirometry to prevent atelectasis #FEN - IV NS 150mL/hr - monitor electrolytes - regular diet Proph: DVT- heparin 5000 SQ TID GI- not needed at this time Visit type - Emergency Visit Emergency Visit: No - New Patient This patient is new to me today: Yes Date on this admission: 04/24/19 - Critical Care Critical Care patient: No - Discharge Referral Referred to [facility] Med P.C.: No
--- NOTE | 2019-04-24 18:45 | PN ---
Teaching Attending Note Name of Resident: Hiwot Singh ATTENDING PHYSICIAN STATEMENT I saw and evaluated the patient. I reviewed the resident's note and discussed the case with the resident. I agree with the resident's findings and plan as documented. SUBJECTIVE: Patient is comfortable with no acute distress. OBJECTIVE: Vital Signs Temperature 97.9 F 04/24/19 15:40 Pulse Rate 60 04/24/19 15:40 Respiratory Rate 15 04/24/19 07:31 Blood Pressure 110/73 04/24/19 15:40 O2 Sat by Pulse Oximetry (%) 98 04/24/19 09:00 GENERAL: The patient is awake, alert, and fully oriented, in no acute distress. HEAD: Normal with no signs of trauma. EYES: PERRL, extraocular movements intact, sclera anicteric, conjunctiva clear. ENT: Ears normal, oropharynx clear without exudates, moist mucous membranes. NECK: Trachea midline, full range of motion, supple. LUNGS: Breath sounds equal, clear to auscultation bilaterally, no wheezes, no crackles, no accessory muscle use. HEART: Regular rate and rhythm, S1, S2 without murmur, rub or gallop. ABDOMEN: Soft, NT,ND, POD#1, normoactive bowel sounds, no guarding, no rebound , no hepatosplenomegaly, no masses. EXTREMITIES: 2+ pulses, warm, well-perfused, no edema. NEUROLOGICAL: Cranial nerves II through XII grossly intact. Normal speech, gait not observed. PSYCH: Normal mood, normal affect. SKIN: Warm, dry, normal turgor, no rashes or lesions noted CBCD WBC 8.7 K/mm3 (4.0-10.0) 04/24/19 08:00 RBC 3.16 M/mm3 (3.60-5.2) L 04/24/19 08:00 Hgb 9.6 GM/dL (10.7-15.3) L 04/24/19 08:00 Hct 29.3 % (32.4-45.2) L 04/24/19 08:00 MCV 92.8 fl (80-96) 04/24/19 08:00 MCHC 32.9 g/dl (32.0-36.0) 04/24/19 08:00 RDW 12.9 % (11.6-15.6) 04/24/19 08:00 Plt Count 218 K/MM3 (134-434) 04/24/19 08:00 MPV 8.8 fl (7.5-11.1) 04/24/19 08:00 CMP Sodium 141 mmol/L (136-145) 04/24/19 08:00 Potassium 3.8 mmol/L (3.5-5.1) 04/24/19 08:00 Chloride 109 mmol/L (98-107) H 04/24/19 08:00 Carbon Dioxide 28 mmol/L (21-32) 04/24/19 08:00 Anion Gap 4 MMOL/L (8-16) L 04/24/19 08:00 BUN 7.8 mg/dL (7-18) 04/24/19 08:00 Creatinine 0.7 mg/dL (0.55-1.3) 04/24/19 08:00 Random Glucose 84 mg/dL (74-106) 04/24/19 08:00 Calcium 8.0 mg/dL (8.5-10.1) L 04/24/19 08:00 Total Bilirubin 0.4 mg/dL (0.2-1) 04/24/19 08:00 AST 9 U/L (15-37) L 04/24/19 08:00 ALT 11 U/L (13-61) L 04/24/19 08:00 Alkaline Phosphatase 52 U/L (45-117) 04/24/19 08:00 Total Protein 5.9 g/dl (6.4-8.2) L 04/24/19 08:00 Albumin 2.7 g/dl (3.4-5.0) L 04/24/19 08:00 Current Medications Generic Name Dose Route Start Last Admin Trade Name Freq PRN Reason Stop Dose Admin Docusate Sodium 100 mg 04/23/19 10:00 04/24/19 09:48 Colace - PO 100 mg BID CRISTIAN Administration Doxycycline Hyclate 100 mg 04/23/19 10:00 04/24/19 17:10 Vibramycin - PO 100 mg BID@1000,1800 CRISTIAN Administration Enoxaparin Sodium 40 mg 04/23/19 10:00 04/24/19 09:48 Lovenox - SQ 40 mg DAILY CRISTIAN Administration Cefoxitin Sodium 2 gm in 50 mls @ 100 mls/hr 04/23/19 10:00 04/24/19 15:08 Mefoxin Premix (Restricted To Id) IVPB 100 mls/hr Q6H-IV CRISTIAN Administration Protocol Sodium Chloride 1,000 mls @ 150 mls/hr 04/23/19 08:45 04/24/19 17:48 Normal Saline - IV 150 mls/hr ASDIR CRISTIAN Administration Ondansetron HCl 4 mg 04/22/19 22:22 Zofran Injection IVPUSH Q6H PRN NAUSEA Home Medications Medication Instructions Recorded NK [No Known Home Medication] 04/22/19 Microbiology 04/22/19 21:35 Body Fluid - Other Gram Stain - Final 04/22/19 21:35 Body Fluid - Other Body Fluid Culture - Preliminary 04/22/19 21:35 Body Fluid - Other Anaerobic Culture - Final NO ANAEROBES WERE ISOLATED 04/24/19 16:50 Urine - Urine Clean Catch Urine Culture - Final NO GROWTH OBTAINED ASSESSMENT AND PLAN: Patient is a 28 yo female with hx of IUD(2014) presented to ED with diffuse abdominal pain started on Saturday, and was localized to the RLQ. # POD #2 s/p laporoscopy for suspected appendicitis , as per surgeon , no appendicitis was noted but had rlq pain with an abscess. on Rocephin as per ID switched to cefoxitin/doxycycline for PID. gyne consult requested. # PID with IUD on cefoxitin/doxycycline continue. # HIV negative s/p testing by ID DVT Px: SCDs
[2019-04-24] MEDS ORDERED: KETOROLAC TROMETHAMINE 15 MG/ML VIAL IVPUSH ONE (21:10)
[2019-04-24] MEDS ORDERED: HEPARIN NA (PORCINE) 5,000 UNITS/ML 1ML VIAL SQ SCH (22:00)
[2019-04-25] MEDS: CEFOXITIN SODIUM/DEXTROSE,ISO 2 GM/50 ML BAG IVPB SCH ×4 (03:15→14:16)
[2019-04-25] MEDS ORDERED: PT OWN MED DRAWER 7, Y5N ONE (09:40)
[2019-04-25] MEDS: SODIUM CHLORIDE 1,000 ML IV SCH (10:04)
[2019-04-25] MEDS: DOXYCYCLINE HYCLATE 100 MG CAPSULE PO SCH (10:05)
[2019-04-25] MEDS: DOCUSATE SODIUM 100 MG CAPSULE (FP) PO SCH (10:05)
[2019-04-25] MEDS: ENOXAPARIN NA (PORCINE) 40 MG/0.4 ML DISP.SYRIN SQ SCH (10:05)
--- NOTE | 2019-04-25 11:34 | PN ---
Progress Note, Physician History of Present Illness: NO C/O ABDOMINAL PAIN NO N/V + BM SCANT BLOODY VAGINAL D/C NO C/O FEVER/ CHILLS AFEBRILE WBC WNL C/S NO GROWTH - Current Medication List Current Medications: Active Medications Docusate Sodium (Colace -) 100 mg PO BID [facility] Last Admin: 04/25/19 10:05 Dose: 100 mg Doxycycline Hyclate (Vibramycin -) 100 mg PO BID@1000,1800 [facility] Last Admin: 04/25/19 10:05 Dose: 100 mg Enoxaparin Sodium (Lovenox -) 40 mg SQ DAILY [facility] Last Admin: 04/25/19 10:05 Dose: 40 mg Cefoxitin Sodium (Mefoxin Premix (Restricted To Id)) 2 gm in 50 mls @ 100 mls/ hr IVPB Q6H-IV CRISTIAN; Protocol Last Admin: 04/25/19 10:13 Dose: Not Given Sodium Chloride (Normal Saline -) 1,000 mls @ 150 mls/hr IV ASDIR [facility] Last Admin: 04/25/19 10:04 Dose: 150 mls/hr Ondansetron HCl (Zofran Injection) 4 mg IVPUSH Q6H PRN PRN Reason: NAUSEA - Objective Vital Signs: Vital Signs Temperature 98.7 F 04/25/19 05:42 Pulse Rate 70 04/25/19 05:42 Respiratory Rate 20 04/25/19 05:42 Blood Pressure 127/82 04/25/19 05:42 O2 Sat by Pulse Oximetry (%) 98 04/24/19 22:00 Constitutional: Yes: No Distress Eyes: Yes: Conjunctiva Clear Cardiovascular: Yes: Regular Rate and Rhythm, S1, S2 Respiratory: Yes: CTA Bilaterally Gastrointestinal: Yes: Normal Bowel Sounds, Soft. No: Tenderness Labs: CBC, BMP 04/24/19 08:00 04/24/19 08:00 Assessment/Plan PID POST OP APPENDECTOMY DAY #3 D/C CEFOXITIN DOXYCYCLINE 100MG PO BID- COMPLETE 10D COURSE
[2019-04-25 12:12] VITALS: BP 139/91; PULSE 61; TEMP 98.4
--- NOTE | 2019-04-25 14:56 | DS ---
Physical Exam: SUBJECTIVE: Patient seen and examined Patient is comfortable with no acute distress. No fever or chills, no shortness of breath. OBJECTIVE: Vital Signs Temperature 98.4 F 04/25/19 10:00 Pulse Rate 61 04/25/19 10:00 Respiratory Rate 18 04/25/19 10:00 Blood Pressure 139/91 04/25/19 10:00 O2 Sat by Pulse Oximetry (%) 98 04/25/19 09:00 GENERAL: The patient is awake, alert, and fully oriented, in no acute distress. HEAD: Normal with no signs of trauma. EYES: PERRL, extraocular movements intact, sclera anicteric, conjunctiva clear. ENT: Ears normal, oropharynx clear without exudates, moist mucous membranes. NECK: Trachea midline, full range of motion, supple. LUNGS: Breath sounds equal, clear to auscultation bilaterally, no wheezes, no crackles, no accessory muscle use. HEART: Regular rate and rhythm, S1, S2 without murmur, rub or gallop. ABDOMEN: Soft, nontender, nondistended, normoactive bowel sounds, no guarding, no rebound, no hepatosplenomegaly, no masses. EXTREMITIES: 2+ pulses, warm, well-perfused, no edema. NEUROLOGICAL: Cranial nerves II through XII grossly intact. Normal speech, gait not observed. PSYCH: Normal mood, normal affect. SKIN: Warm, dry, normal turgor, no rashes or lesions noted. LABS CBCD WBC 8.7 K/mm3 (4.0-10.0) 04/24/19 08:00 RBC 3.16 M/mm3 (3.60-5.2) L 04/24/19 08:00 Hgb 9.6 GM/dL (10.7-15.3) L 04/24/19 08:00 Hct 29.3 % (32.4-45.2) L 04/24/19 08:00 MCV 92.8 fl (80-96) 04/24/19 08:00 MCHC 32.9 g/dl (32.0-36.0) 04/24/19 08:00 RDW 12.9 % (11.6-15.6) 04/24/19 08:00 Plt Count 218 K/MM3 (134-434) 04/24/19 08:00 MPV 8.8 fl (7.5-11.1) 04/24/19 08:00 CMP Sodium 141 mmol/L (136-145) 04/24/19 08:00 Potassium 3.8 mmol/L (3.5-5.1) 04/24/19 08:00 Chloride 109 mmol/L (98-107) H 04/24/19 08:00 Carbon Dioxide 28 mmol/L (21-32) 04/24/19 08:00 Anion Gap 4 MMOL/L (8-16) L 04/24/19 08:00 BUN 7.8 mg/dL (7-18) 04/24/19 08:00 Creatinine 0.7 mg/dL (0.55-1.3) 04/24/19 08:00 Random Glucose 84 mg/dL (74-106) 04/24/19 08:00 Calcium 8.0 mg/dL (8.5-10.1) L 04/24/19 08:00 Total Bilirubin 0.4 mg/dL (0.2-1) 04/24/19 08:00 AST 9 U/L (15-37) L 04/24/19 08:00 ALT 11 U/L (13-61) L 04/24/19 08:00 Alkaline Phosphatase 52 U/L (45-117) 04/24/19 08:00 Total Protein 5.9 g/dl (6.4-8.2) L 04/24/19 08:00 Albumin 2.7 g/dl (3.4-5.0) L 04/24/19 08:00 Current Medications Generic Name Dose Route Start Last Admin Trade Name Edvin PRN Reason Stop Dose Admin Docusate Sodium 100 mg 04/23/19 10:00 04/25/19 10:05 Colace - PO 100 mg BID CRISTIAN Administration Doxycycline Hyclate 100 mg 04/23/19 10:00 04/25/19 10:05 Vibramycin - PO 100 mg BID@1000,1800 CRISTIAN Administration Enoxaparin Sodium 40 mg 04/23/19 10:00 04/25/19 10:05 Lovenox - SQ 40 mg DAILY CRISTIAN Administration Cefoxitin Sodium 2 gm in 50 mls @ 100 mls/hr 04/23/19 10:00 04/25/19 14:16 Mefoxin Premix (Restricted To Id) IVPB Not Given Q6H-IV CRISTIAN Protocol Sodium Chloride 1,000 mls @ 150 mls/hr 04/23/19 08:45 04/25/19 10:04 Normal Saline - IV 150 mls/hr ASDIR CRISTIAN Administration Ondansetron HCl 4 mg 04/22/19 22:22 Zofran Injection IVPUSH Q6H PRN NAUSEA Home Medications Medication Instructions Recorded NK [No Known Home Medication] 04/22/19 Microbiology 04/22/19 21:35 Body Fluid - Other Gram Stain - Final 04/22/19 21:35 Body Fluid - Other Body Fluid Culture - Preliminary NO AEROBIC GROWTH, 24 HRS Microbiology 04/22/19 21:35 Body Fluid - Other Gram Stain - Final 04/22/19 21:35 Body Fluid - Other Body Fluid Culture - Preliminary 04/22/19 21:35 Body Fluid - Other Anaerobic Culture - Final NO ANAEROBES WERE ISOLATED 04/24/19 16:50 Urine - Urine Clean Catch Urine Culture - Final NO GROWTH OBTAINED HOSPITAL COURSE: Date of Admission:04/22/19 Date of Discharge: 04/25/19 ASSESSMENT AND PLAN: Patient is a 28 yo female with hx of IUD(2014) presented to ED with diffuse abdominal pain started on Saturday, and was localized to the RLQ. # POD #3 s/p laposcopy for suspected appendicitis , as per surgeon , no appendicitis was noted but had rlq pain with an abscess. s/p Rocephin / cefoxitin/doxycycline for PID. gyne consult appreciated . # PID with IUD , s/p cefoxitin will continue with doxycycline 100mg po bid x 10 more days. . # HIV negative s/p testing by ID follow with your OBGYN Advised patient of findings of normal L adnexal cyst and advised follow up in 8- 12 week for repeat imaging to determine if this cyst is stable or has resolved- can do this with her private OBGYN in [facility] Minutes to complete discharge: 35 Discharge Summary Reason For Visit: R/O APPENDICITIS Current Active Problems Abdominal pain in female patient (Acute) Appendicitis (Acute) Fever (Acute) Leukocytosis (leucocytosis) (Acute) PID (acute pelvic inflammatory disease) (Acute) RLQ abdominal pain (Acute) Condition: Improved - Instructions Diet, Activity, Other Instructions: /Postoperative instructions: You had a laparoscopic appendectomy on by Dr. Zenon Renee of [facility]. Activity: Resume your usual activities gradually, but no heavy exertion or lifting more than 10-15 pounds for 1 month. Remove dressings 48 hours after surgery; sticky tapes underneath will fall off by themselves. You may shower daily starting then, just pat the incision areas dry. No bath or swimming until skin incisions have healed. Eat lightly at first, but advance to your usual diet as tolerated. Pain: For pain, you may use and alternate Tylenol (acetaminophen) 1-2 pills and/ or ibuprofen 200 mg (1-3 pills) every 6 hours each as needed; this means that you can take one OR the other at 3-hour intervals. If you are prescribed a Tylenol/narcotic combination for severe pain, use it instead of plain Tylenol as needed and switch back when your pain starts decreasing. Do not take more than 4000mg of acetaminophen in a day. Take medications as prescribed or indicated on the labeling. Follow-up: Call Dr. Renee office at [phone] to make your postop appointment (Saturday in approximately 2 weeks after surgery). Clinic is held in the Diagnostic Center on the first floor of [facility]. Call the office if you have: * increasing pain not responsive to pain medication * fever of 101F or higher * vomiting * unusual or increasing bleeding or drainage from wounds * increasing redness or swelling at wound sites * inability to urinate /Also, see your primary medical doctor within 1-2 weeks. Advised patient of findings of normal L adnexal cyst and advised follow up in 8- 12 week for repeat imaging to determine if this cyst is stable or has resolved- can do this with her private OBGYN in [facility] Referrals: Zenon Renee MD [Staff Physician] - 1 Week Saira Rajan MD [Staff Physician] - 2 Weeks Alan Harkins MD [Staff Physician] - 2 Weeks Disposition: HOME - Home Medications Comprehensive Discharge Medication List: Ambulatory Orders NK [No Known Home Medication] 04/22/19 This patient is new to me today: No Emergency Visit: Yes ED Registration Date: 04/22/19 Care time: The patient presented to the Emergency Department on the above date and was hospitalized for further evaluation of their emergent condition. Critical Care patient: No - Discharge Referral Referred to [facility] Med P.C.: No
--- NOTE | 2019-04-27 15:50 | PATH ---
Cytology Non-Gynecological Report Patient Name: MILAGRO MORALES Med. Rec. #: [id number] /Age/Gender: 1990 (Age: 28) / F Account: [id number] Location: [address] [place] [address]/[facility] Taken: 04/22/2019 Received: 04/24/2019 Reported: 04/27/2019 Physicians: Chip Keith M.D. Specimen(s) Received PELVIC WASHING Clinical History r/o acute appendicitis vs PID Final Diagnosis PELVIC WASHING FOR CYTOLOGY: SATISFACTORY FOR EVALUATION. NEGATIVE FOR MALIGNANT CELLS. ACUTE PURULENT EXUDATE COMPRISED OF NUMEROUS NEUTROPHILS. Comment: Focal degenerative changes present. See concurrent biopsy [id number]. Electronically Signed Nancy Gutiérrez M.D. Gross Description Approximately 5 cc of yellow fluid received fresh. One cytofunnel prepared and Pap stained. One cellblock prepared.
--- NOTE | 2019-04-28 16:12 | PATH ---
Surgical Pathology Report Patient Name: MILAGRO MORALES Med. Rec. #: [id number] /Age/Gender: 1990 (Age: 28) / F Account: [id number] Location: [address] [place] [address] Taken: 04/22/2019 Received: 04/24/2019 Reported: 04/28/2019 Physicians: Chip Mai M.D. Specimen(s) Received APPENDIX Clinical History Acute appendicitis vs PID Final Diagnosis APPENDIX, DIAGNOSTIC LAPAROSCOPY AND APPENDECTOMY: APPENDIX WITH FIBROUS OBLITERATION AND ACUTE SEROSITIS. SEE COMMENT. Comment: Acute inflammation is present on the serosal surface of the appendix. In view of this finding, an extra-appendiceal source of inflammation should be clinically ruled out. Suggest clinical and radiologic correlation. See concurrent cytology [id number]. Electronically Signed Nancy Gutiérrez M.D. Gross Description Received in formalin, labeled "appendix," is a 6.5 cm. in length vermiform appendix with a stapled margin of resection and moderate attached fat. The serosa is moraes-chambers and smooth. Sectioning reveals an occluded lumen. The wall of the appendix averages 0.1 cm. in thickness. Entire specimen is submitted in 5 cassettes. 04/24/2019 saudi04/24/2019
== END 2019-04-25 16:14 | disposition home or self-care (01) | DRG 343 ==
LOC: FER 14:14 → J6S 19:03
PROVIDERS: ADMIT Internal Medicine; ATTEND Internal Medicine
PROC: 0DTJ4ZZ Resection of Appendix, Percutaneous Endoscopic Approach (ICD-10-PCS; principal; 2019-04-22 20:45)
DX: K35.80 Unspecified acute appendicitis (principal); N73.9 Female pelvic inflammatory disease, unspecified; D72.829 Elevated white blood cell count, unspecified; R50.9 Fever, unspecified; R10.31 Right lower quadrant pain
CPT/HCPCS: 36415; 74176-TC; 76705-TC; 80053; 81003; 81015; 83735; 84100; 84703; 85025; 85027; 87070; 87075; 87086; 87205; 87389; 88108; 88304-TC; 88305-TC; 94760; 99284-25; J0131; J7030